=== PATIENT | female | born 1990 | race Caucasian/White ===

== ENCOUNTER 2017-01-03 09:57 | Emergency (ER) | payer SELFPAY ==
[~2017-01-03] VITALS: Ht 162.6 cm; Wt 79.5 kg
[~2017-01-03 09:57] MED LIST: ACET500L27 PO; ASCO500T8 PO; FERR325T40 PO; PREN1TAB69 PO
[2017-01-03 09:58] VITALS: BP 123/85; PULSE 107; RESP 16; O2SAT 100
--- NOTE | 2017-01-03 10:07 | ED.REPORT ---
HPI-Extremity Problem Lower Date of Service Jan 03, 2017 ED Provider: Alberta is an otherwise healthy 26-year-old female who presents to the ED for right ankle pain after a fall last night. She noted that around midnight she was running and fell into a hole which was 3 feet deep. Patient was intoxicated at the time and did not notice the pain until this morning. Pain starts at her right ankle and radiates down to her foot. She is unable to bear weight. She notes that her foot is really swollen. She has not tried anything for the pain. Nursing Notes Stated Complaint: ROLLED ANKLE/ RIGHT Chief Complaint: Extremity Trauma Allergies: Coded Allergies: Penicillins (Verified Allergy, Severe, swelling / hives, 01/03/17) Scheduled Acetaminophen (Acetaminophen) 500 Mg/5 Ml Liquid 1,000 MG PO BID Ascorbic Acid (Vitamin C) 500 Mg Tablet 500 MG PO BID Ferrous Sulfate (Iron) 325 Mg Tablet 325 MG PO BID Vit/Fe Fumarate/Fa-Expunged Drug, Do (-Expunged Drug, Do Not Renew!) 1 Each Tablet 1 EACH PO DAILY General Time Seen by MD: 10:06 Chief Complaint Ankle injury right Hx Obtained From: Patient Arrived By: Walk-in Onset Occurred: 9 - 12 hours ago Symptom Duration: Constant Caused by: Fall from height... (< 3 feet) Location: : Ankle right Quality: Painful, Sharp Severity: Current: Pain level 9 out of 10 Pertinent Negative: Pt denies other symptoms Exacerbated by: Range of motion, Movement Pertinent Negative: Relieved by nothing Past Medical History Past Medical History Kidney stones Asthma Depression Reports: GERD Past Surgical History kidney stents Reports: Smoking History Current Every Day Smoker Social History Alcohol Use: "Social" Drug Use: Denies drug use Other Social History: Good social support, Local resident Occupation lives with daughters, school on Thursday thru Ambulatory Status Independent Review of Systems Basic Review of Systems Eyes: Vision NL, No discharge ENT: Hearing NL, No pain, No nasal congestion, No pharyngeal pain Respiratory: No shortness of breath, No cough, No wheeze Cardiovascular: No chest pain, No dyspnea on exertion, No orthopnea, No parox noct dyspnea, No palpitations GI: No abdominal pain, No anorexia, No nausea, No vomiting : No dysuria, No frequency Hematologic: No bleeding, No bruising Endocrine: No cold intolerance, No heat intolerance, No weight gain, No weight loss Allergy / Immune: No allergy Psychiatric: Normal thought content Musculoskeletal: Reports: Extremity pain, Extremity swelling Complete sys rev & neg: except as marked. Physical Exam Initial Vital Signs Vital Signs (First) Date Time Temp Pulse Resp B/P Pulse Ox O2 Delivery O2 Flow Rate FiO2 01/03/17 09:58 36.6 107 16 123/85 100 Room Air Initial VS: Reviewed General/Constitutional: Well-developed, Well-nourished Head / Eyes: PERRL Skin: Warm, Dry, No cyanosis Neurologic: Alert, Oriented, Nonfocal Right Ankle: Positive: ROM reduced, Swelling present... (Mild), Tender lateral malleolus, Tender medial malleolus, Negative: Ecchymosis present, Erythema present Right Foot: Negative: Swelling present... Trauma / Burn / Environmental: Negative: Hematoma, Laceration General/Constitutional: Awake, Alert, Well appearing Appearance / Presentation: Positive: In pain Neurologic: Oriented X3, Speech NL, No motor deficits, No sensory deficits Interpretation & Diagnostics X-Ray Interpretation Xray Interpretation: IMPRESSION: No trauma found. X-Ray Ordered: Ankle right Interpretation / Wet Read by: Interpret - Radiologist Re-Eval/Medical Decision Med Decision/Clinical Course Alberta is a 26 your old female with a recent history of a fall into a 3 foot hole to the ED with right ankle pain and swelling. Patient has been able to bear weight and there is pain with palpation of the medial and lateral malleoli. X-ray of the right ankle showed no signs of trauma, no fractures. We'll send patient home. Informed patient to rest, ice, compression, elevation. Provided boot to assist with walking. Patient is also requesting crutches. Discharge & Departure Impression: Primary Impression: Ankle sprain Encounter type: initial encounter Involved ligament of ankle: unspecified ligament Laterality: right Qualified Code: S93.401A - Sprain of unspecified ligament of right ankle, initial encounter Disposition: Home Discharge Condition All VS Reviewed: Yes Condition: Stable Patient Instructions: Ankle Sprain (GEN) Additional Instructions: Day we took an x-ray of your right ankle. X-ray showed that there is no fracture. I am sending you home with a walking boot. Rest, ice, compression, and elevation of your foot help with the swelling and the pain. You can take up to 2000 mg of Tylenol a day the pain. Referrals: Tucker Underwood MD (PCP) EDSupervising Provider for APC: Amilcar Swan MD Attending Statement I discussed case with resident Dr. Vazquez and I evaluated the patient independently and agree with plan as above. In brief, 26-year-old female with right ankle pain status post rolling her ankle. She has no evidence of fracture. She was placed in a walking boot. Discharged home with follow-up primary doctor return precautions given. Amilcar Swan MD Jan 03, 2017 10:07 Trini Vazquez DO Jan 03, 2017 11:38
[2017-01-03] MEDS ORDERED: HYDROcodone-APAP 5-325 mg Tablet PO ONE (10:25)
--- NOTE | 2017-01-03 10:54 | DRSVH ---
PROCEDURE: X-RAY RIGHT ANKLE, MINIMUM THREE VIEWS ([id number]) INDICATIONS: trauma TECHNIQUE: 3 views of the ankle were acquired. COMPARISON: None. FINDINGS: Bones: No fractures or dislocations. Ankle mortise is normally aligned. No suspicious bony lesions . Soft tissues: No tibiotalar joint effusion. Achilles tendon appears normal. IMPRESSION: No trauma found. Dictated by: Erlin Watts M.D. on 01/03/2017 at 10:51 Approved by: Erlin Watts M.D. on 01/03/2017 at 10:52
[2017-01-03 12:35] VITALS: BP 125/81; PULSE 72; RESP 20; O2SAT 97
== END 2017-01-03 12:36 | disposition home or self-care (01) ==
LOC: SED 09:57
DX: S93.491A Sprain of other ligament of right ankle, initial encounter (principal); W17.2XXA Fall into hole, initial encounter; Y93.02 Activity, running; Y99.8 Other external cause status; Y92.89 Other specified places as the place of occurrence of the external cause; K21.9 Gastro-esophageal reflux disease without esophagitis; J45.909 Unspecified asthma, uncomplicated; F17.200 Nicotine dependence, unspecified, uncomplicated; F12.10 Cannabis abuse, uncomplicated; Z87.442 Personal history of urinary calculi; Z88.0 Allergy status to penicillin